=== PATIENT | male | born 1980 | race Caucasian/White ===

== ENCOUNTER 2017-02-05 22:23 | Emergency (ER) | payer BC ==
[~2017-02-05] VITALS: Ht 182.9 cm; Wt 111.1 kg
[2017-02-05] MEDS ORDERED: ZOLOFT25 MG ORAL (22:44)
[2017-02-05] MEDS ORDERED: METOPROLOL TART25 MG ORAL (22:44)
[2017-02-05] MEDS ORDERED: COZAAR25 MG ORAL (22:44)
[2017-02-05] MEDS ORDERED: DiphenhydrAMINE 50mg/ml Inj IVP ONE (23:00)
[2017-02-05] MEDS ORDERED: Metoclopramide 10mg/2ml Inj IVP ONE (23:00)
[2017-02-05 23:05] LABS: APPEARANCE,URINE CLEAR; KETONES,URINE NEGATIVE (NEGATIVE); LEUKOCYTE ESTERASE ,URINE NEGATIVE (NEGATIVE); NITRITE,URINE NEGATIVE (NEGATIVE); PH,URINE 7 (4.5-8.0); PROTEIN,URINE NEGATIVE (NEGATIVE); UROBILINOGEN,URINE NORMAL MG/DL (0.0-1.0)
[2017-02-05 23:10] VITALS: BP 158/99
[2017-02-05 23:40] LABS: BASOPHILS % (AUTO) 0.7 % (0.0-2.0); EOSINOPHILS % (AUTO) 0.7 % (0.0-3.0); LYMPHOCYTES % (AUTO) 26.5 % (20.0-45.0); MEAN CORPUSCULAR HEMOGLOBIN 28.4 PG (27.0-31.0); MEAN CORPUSCULAR VOLUME 84 FL (80-99); MONOCYTES % (AUTO) 9.5 % (1.0-10.0); NEUTROPHILS % (AUTO) 62.6 % (45.0-75.0); PLATELET COUNT 225 K/UL (150-450); RED CELL DISTRIBUTION WIDTH 11.2 % (11.6-14.8); WHITE BLOOD COUNT 8.9 K/UL (4.8-10.8)
[2017-02-05 23:53] LABS: ALANINE AMINOTRANSFERASE 27 U/L (3-41); ALBUMIN/GLOBULIN RATIO 1.7 (1.0-2.7); ANION GAP 13 (5-15); ASPARTATE AMINO TRANSFERASE 28 U/L (5-40); CALCIUM 9.5 mg/dL (8.6-10.2); CARBON DIOXIDE 26 mEQ/L (20-30); CHLORIDE 102 mEQ/L (98-107); CREATININE 1.1 mg/dL (0.7-1.2); GLOMERULAR FILTRATION RATE > 60 mL/min (>60); HEMOLYSIS 10; POTASSIUM 3.4 mEQ/L (3.4-4.9); SODIUM 141 mEQ/L (135-145); TOTAL PROTEIN 7.4 g/dL (6.6-8.7)
[2017-02-06] MEDS ORDERED: DiphenhydrAMINE 50mg/ml Inj IVP ONE (00:15)
[2017-02-06 00:30] VITALS: BP 127/70
[2017-02-06] MEDS ORDERED: FIORICET1 EA ORAL (01:53)
[2017-02-06 02:00] VITALS: BP 132/69
[2017-02-06 02:06] VITALS: BP 132/69
--- NOTE | 2017-02-06 02:37 | Emergency Room Report ---
History of Present Illness General Chief Complaint: Headache Source: Patient Present Illness HPI Patient 36-year-old male presented after increased headache. Patient reported having headache acute onset approximately 1 day prior to arrival. Patient reported having difficulty with have bilateral eye pain. He reported having some increased stiffness to his low back. He had not been vomiting. He reports having had previously having played sports and had increased pain over the past 2 days. Patient had been taking Naprosyn without relief. Allergies: Coded Allergies: AMOXICILLIN (Verified Allergy, Unknown, 02/05/17) Patient History Reviewed Nursing Documentation: PMH: Agreed, PSxH: Agreed Nursing Documentation-PMH Past Medical History: No History, Except For Hx Hypertension: Yes Review of Systems All Other Systems: negative except mentioned in HPI Physical Exam Vital Signs Date Time Temp Pulse Resp B/P (MAP) Pulse Ox O2 Delivery O2 Flow Rate FiO2 02/05/17 22:35 98.8 87 16 158/99 95 Room Air Sp02 EP Interpretation: reviewed, normal General Appearance: normal inspection, well appearing, no apparent distress, alert, GCS 15 Head: atraumatic ENT: normal ENT inspection, hearing grossly normal, normal voice Neck: normal inspection, full range of motion, supple, no bony tend Respiratory: normal inspection, lungs clear, normal breath sounds, no respiratory distress, no retraction, no wheezing Cardiovascular #1: regular rate, rhythm, no edema Gastrointestinal: normal inspection, normal bowel sounds, non tender, soft, no guarding, no hernia Genitourinary: no CVA tenderness Musculoskeletal: normal inspection, back normal, normal range of motion Neurologic: normal inspection, alert, oriented x3, responsive, inset cutter III-XII nml as tested, speech normal Psychiatric: normal inspection, judgement/insight normal, mood/affect normal Skin: normal inspection, normal color, no rash Medical Decision Making Diagnostic Impression: Primary Impression: Headache ER Course Patient 36-year-old male who presented after increased headache. Differential diagnoses included but was not limited to skull fracture, subarachnoid hemorrhage, meningitis, aneurysm, mass lesion, intracranial hemorrhage. Because of complexity of patient's case laboratory testing and imaging studies were ordered. Patient was noted to have concerning type headache. He did not show any evidence of a bacterial meningitis. MRI was ordered due to patient's acute onset of headache. MRI read by radiology showed no acute abnormalities. The patient was given medications for his headache with some improvement. The patient was offered spinal tap however he declined. The patient is advised to return if he began having worsening headache numbness or weakness in his extremities persistent vomiting or other concerns Labs Test 02/05/17 22:28 02/05/17 23:10 Urine Color Pale yellow Urine Appearance Clear Urine pH 7 (4.5-8.0) Urine Specific [place] 1.010 (1.005-1.035) Urine Protein Negative (NEGATIVE) Urine Glucose (UA) Negative (NEGATIVE) Urine Ketones Negative (NEGATIVE) Urine Occult Blood Negative (NEGATIVE) Urine Nitrite Negative (NEGATIVE) Urine Bilirubin Negative (NEGATIVE) Urine Urobilinogen Normal MG/DL (0.0-1.0) Urine Leukocyte Esterase Negative (NEGATIVE) White Blood Count 8.9 K/UL (4.8-10.8) Red Blood Count 5.60 M/UL (4.70-6.10) Hemoglobin 15.9 G/DL (14.2-18.0) Hematocrit 46.9 % (42.0-52.0) Mean Corpuscular Volume 84 FL (80-99) Mean Corpuscular Hemoglobin 28.4 PG (27.0-31.0) Mean Corpuscular Hemoglobin Concent 34.0 G/DL (32.0-36.0) Red Cell Distribution Width 11.2 % (11.6-14.8) Platelet Count 225 K/UL (150-450) Mean Platelet Volume 8.0 FL (6.5-10.1) Neutrophils (%) (Auto) 62.6 % (45.0-75.0) Lymphocytes (%) (Auto) 26.5 % (20.0-45.0) Monocytes (%) (Auto) 9.5 % (1.0-10.0) Eosinophils (%) (Auto) 0.7 % (0.0-3.0) Basophils (%) (Auto) 0.7 % (0.0-2.0) Sodium Level 141 mEQ/L (135-145) Potassium Level 3.4 mEQ/L (3.4-4.9) Chloride Level 102 mEQ/L (98-107) Carbon Dioxide Level 26 mEQ/L (20-30) Anion Gap 13 (5-15) Blood Urea Nitrogen 7 mg/dL (7-23) Creatinine 1.1 mg/dL (0.7-1.2) Estimat Glomerular Filtration Rate > 60 mL/min (>60) Glucose Level 118 mg/dL (74-106) Calcium Level 9.5 mg/dL (8.6-10.2) Total Bilirubin 0.9 mg/dL (0.0-1.2) Aspartate Amino Transf (AST/SGOT) 28 U/L (5-40) Alanine Aminotransferase (ALT/SGPT) 27 U/L (3-41) Alkaline Phosphatase 53 U/L (40-129) Total Protein 7.4 g/dL (6.6-8.7) Albumin 4.7 g/dL (3.5-5.2) Globulin 2.7 g/dL Albumin/Globulin Ratio 1.7 (1.0-2.7) Last Vital Signs Date Time Temp Pulse Resp B/P (MAP) Pulse Ox O2 Delivery O2 Flow Rate FiO2 02/06/17 02:06 98.0 21 132/69 100 Room Air 02/05/17 22:35 87 Status: improved Disposition: HOME, SELF-CARE Condition: Stable Scripts Acetamin/Butalbital/Caffeine* (FIORICET*) 1 Ea Tab 1 TAB ORAL Q6H, #15 TAB 0 Refills Prov: Jj Parker 02/06/17 Patient Instructions: General Headache Without Cause Jj Parker Feb 06, 2017 02:37
--- NOTE | 2017-02-06 11:25 | Diagnostic Imaging Report ---
Indication: New-onset headache. Technique: The head was imaged in a 1.5 Sabrina magnet. Sequences obtained include sagittal and axial T1 FLAIR, axial T2 fast spin echo with fat saturation, axial T2 FLAIR, diffusion and ADC map. Comparison: None Findings: The size, contour, and configuration of the sulci, ventricles, and basal cisterns appear normal. Rodriguez-white differentiation is normal. There is no restricted diffusion. There is no mass effect, midline shift, edema, or hemorrhage. There are no abnormal extra-axial or intra-axial fluid collections. The corpus callosum is unremarkable. The brainstem and cerebellum are unremarkable. The sella is unremarkable. Bone marrow signal within the visualized osseous structures appears age appropriate and unremarkable otherwise. Subtotal thickening noted in ethmoid sinus Impression: Negative MRI brain without contrast. Ethmoid sinusitis [facility] has communicated the preliminary results to the Emergency Department. Their findings are largely concordant with this report.
== END 2017-02-06 02:00 | disposition home or self-care (01) ==
LOC: EMR 22:55
DX: R51 Headache (principal); J32.2 Chronic ethmoidal sinusitis; Z88.8 Allergy status to other drugs, medicaments and biological substances; I10 Essential (primary) hypertension
CPT/HCPCS: 36415; 70551; 80053; 81003; 85025; 96361; 96374; 96375; 99284; J1200; J2765; J7040

== ENCOUNTER 2019-02-08 16:43 | Emergency (ER) | payer BC ==
[~2019-02-08] VITALS: Ht 182.9 cm; Wt 97.5 kg
[~2019-02-08 16:43] MED LIST: COZAAR25 MG ORAL; FIORICET1 EA ORAL; METOPROLOL TART25 MG ORAL; ZOLOFT25 MG ORAL
[2019-02-08 17:12] VITALS: BP 148/91
[2019-02-08] MEDS ORDERED: DiphenhydrAMINE 50mg/ml Inj IVP ONE (17:15)
[2019-02-08] MEDS ORDERED: Metoclopramide 10mg/2ml Inj IVP ONE (17:15)
[2019-02-08] MEDS ORDERED: Ketorolac 30mg Inj IV ONE (17:15)
--- NOTE | 2019-02-08 17:18 | NUR ---
ED Nurse Note: pt c/o headache and dizziness. ERMD eval done pt unable tto give urine at this time ermd aware.
--- NOTE | 2019-02-08 17:58 | NUR ---
ED Nurse Note: blood and urine sent pt medicated ivf up infusing. will monitor.
[2019-02-08 18:00] LABS: APPEARANCE,URINE CLEAR; BILIRUBIN, URINE NEGATIVE (NEGATIVE); GLUCOSE, URINE (UA) NEGATIVE (NEGATIVE); KETONES,URINE NEGATIVE (NEGATIVE); LEUKOCYTE ESTERASE ,URINE NEGATIVE (NEGATIVE); NITRITE,URINE NEGATIVE (NEGATIVE); PH,URINE 8 (4.5-8.0); PROTEIN,URINE NEGATIVE (NEGATIVE); UROBILINOGEN,URINE NORMAL MG/DL (0.0-1.0)
[2019-02-08 18:07] LABS: BASOPHILS % (AUTO) 0.9 % (0.0-2.0); EOSINOPHILS % (AUTO) 1.2 % (0.0-3.0); HEMATOCRIT 49.6 % (42.0-52.0); HEMOGLOBIN 16.4 G/DL (14.2-18.0); LYMPHOCYTES % (AUTO) 23.5 % (20.0-45.0); MEAN CORPUSCULAR VOLUME 82 FL (80-99); NEUTROPHILS % (AUTO) 67.4 % (45.0-75.0); PLATELET COUNT 226 K/UL (150-450); RED BLOOD COUNT 6.01 M/UL (4.70-6.10); RED CELL DISTRIBUTION WIDTH 11.4 % (11.6-14.8); WHITE BLOOD COUNT 7.7 K/UL (4.8-10.8)
[2019-02-08 18:09] LABS: COLOR,URINE YELLOW
[2019-02-08 18:11] LABS: ANION GAP 8 mmol/L (5-15); BLOOD UREA NITROGEN 12 mg/dL (7-18); CALCIUM 9.6 MG/DL (8.5-10.1); CARBON DIOXIDE 27 MMOL/L (21-32); CHLORIDE 105 MMOL/L (98-107); CREATININE 1.1 MG/DL (0.55-1.30); POTASSIUM 3.9 MMOL/L (3.5-5.1); SODIUM 140 MMOL/L (136-145)
[2019-02-08 18:21] LABS: ALANINE AMINOTRANSFERASE 33 U/L (12-78); ALBUMIN 4.7 G/DL (3.4-5.0); ALBUMIN/GLOBULIN RATIO 1.3 (1.0-2.7); ALKALINE PHOSPHATASE 48 U/L (46-116); ASPARTATE AMINO TRANSFERASE 27 U/L (15-37); BILIRUBIN,TOTAL 1.1 MG/DL (0.2-1.0)
[2019-02-08 18:23] LABS: BILIRUBIN,DIRECT 0.2 MG/DL (0.0-0.3)
--- NOTE | 2019-02-08 18:24 | NUR ---
ED Nurse Note: verbal order to d/c allylan. order changed to mary
--- NOTE | 2019-02-08 18:44 | Emergency Room Report ---
History of Present Illness General Chief Complaint: Headache Source: Patient Present Illness HPI 38-year-old male with history of migraine headaches here complaining acute onset of 10 out of 10 headache that started 2 days ago after he got out. Patient reports that he is now radiating to his neck giving him nausea. Patient was seen patient reports that the medication was given the emergency room and upon discharge to help. Patient has taken many other than Tylenol today. Went to her primary care earlier and was given Imitrex took 2 Imitrex and did not have any improvement. Patient denies syncope, loss of consciousness , dizziness, blurred vision, aura Denies abdominal pain, cough and congestion recent URI symptoms. Denies vertigo, motor and sensory deficits. Denies chest pain, palpitation, and other associated symptoms. Denies tobacco smoke, alcohol intake, drug use. Patient reports that he works out a lot does not take any steroid injections and always hydrates. Denies head injury. Patient refuses head CT scan. Denies neck stiffness, fever and chills, photophobia Allergies: Coded Allergies: AMOXICILLIN (Verified Allergy, Unknown, 02/05/17) Patient History Past Medical History: see triage record Past Surgical History: unable to obtain Pertinent Family History: none Immunizations: UTD Reviewed Nursing Documentation: PMH: Agreed; PSxH: Agreed Nursing Documentation-PMH Past Medical History: No History, Except For Hx Hypertension: Yes Review of Systems All Other Systems: negative except mentioned in HPI Physical Exam Vital Signs Date Time Temp Pulse Resp B/P (MAP) Pulse Ox O2 Delivery O2 Flow Rate FiO2 02/08/19 16:57 99.1 88 15 148/91 (110) 98 Room Air Sp02 EP Interpretation: reviewed, normal General Appearance: no apparent distress, alert, GCS 15, non-toxic Head: normocephalic, atraumatic Eyes: bilateral eye normal inspection, bilateral eye PERRL ENT: hearing grossly normal, normal pharynx, no angioedema, normal voice Neck: full range of motion, supple, no meningismus, supple/symm/no masses Respiratory: chest non-tender, lungs clear, normal breath sounds, no rhonchi, no wheezing, speaking full sentences Cardiovascular #1: regular rate, rhythm, no edema, no murmur Gastrointestinal: normal bowel sounds, non tender, soft, non-distended, no guarding, no rebound Rectal: deferred Musculoskeletal: back normal, gait/station normal, normal range of motion, non- tender Neurologic: alert, oriented x3, responsive, motor strength/tone normal, sensory intact, speech normal Psychiatric: judgement/insight normal, memory normal, mood/affect normal, no suicidal/homicidal ideation Skin: no rash Lymphatic: no adenopathy Medical Decision Making PA Attestation All my diagnosis and treatment plans were reviewed ad discussed with my supervising physician Dr. Parker Diagnostic Impression: Primary Impression: Migraine headache ER Course 38-year-old male with history of migraine headaches here complaining acute onset of 10 out of 10 headache that started 2 days ago after he got out. Patient reports that he is now radiating to his neck giving him nausea. Patient was seen patient reports that the medication was given the emergency room and upon discharge to help. Patient has taken many other than Tylenol today. Went to her primary care earlier and was given Imitrex took 2 Imitrex and did not have any improvement. Patient denies syncope, loss of consciousness , dizziness, blurred vision, aura Denies abdominal pain, cough and congestion recent URI symptoms. Denies vertigo, motor and sensory deficits. Denies chest pain, palpitation, and other associated symptoms. Denies tobacco smoke, alcohol intake, drug use. Patient reports that he works out a lot does not take any steroid injections and always hydrates. Denies head injury. Patient refuses head CT scan. Denies neck stiffness, fever and chills, photophobia Ddx considered but are not limited to: cerebral hematoma, concussion, migraine headache, tension headache, intracranial tumor Vital signs: are WNL, pt. is afebrile H&PE are most consistent with:migraine SAVAGE ORDERS: Head CT scan, CBC, CMP, UA, urine tox screen, Fioricet, Zofran ER intervention: Zofran, Toradol, NS bolus, Benadryl DISCHARGE: At this time pt. is stable for d/c to home. Will provide printed patient care instructions, and any necessary prescriptions. Care plan and follow up instructions have been discussed with the patient prior to discharge. Patient agreed with neurologist who presents to the emergency room since patient has had similar pain 2 years ago may be connected to his migraine headache and since patient refusing a CT scan unknown status of head bleed or tumor. I advised the patient to follow-up with primary care and definitely with a CT scan or new MRI. Patient do not want to take Reglan and said that it gives him anxiety. Patient also takes Xanax occasionally at night advised him to not take at the same time as Fioricet. ORDERS: head CT no contrast ED INTERVENTIONS: None required at this time. DISCHARGE: At this time pt. is stable for d/c to home. Will provide printed patient care instructions, and any necessary prescriptions. Care plan and follow up instructions have been discussed with the patient prior to discharge. Last Vital Signs Date Time Temp Pulse Resp B/P (MAP) Pulse Ox O2 Delivery O2 Flow Rate FiO2 02/08/19 17:12 99.1 15 148/91 98 Room Air 02/08/19 16:57 88 Disposition: HOME, SELF-CARE Condition: Stable Scripts Ondansetron (Zofran) 4 Mg Tablet 4 MG ORAL Q6H PRN for Nausea & Vomiting, #12 TAB Prov: Aileen Polanco 02/08/19 Acetamin/Butalbital/Caffeine* (FIORICET*) 1 Ea Tab 1 TAB ORAL Q6H for 4 Days, #15 TAB 0 Refills Prov: Aileen Polanco 02/08/19 Referrals: NON PHYSICIAN (PCP) Patient Instructions: Migraine Headache Additional Instructions: Take medication as directed follow-up with your primary care provider for referral to neurologist if worsening symptoms return to the emergency room Aileen Polanco Feb 08, 2019 18:44
[2019-02-08] MEDS ORDERED: FIORICET1 EA ORAL (18:45)
[2019-02-08] MEDS ORDERED: ZOFRAN4 M1 ORAL (18:45)
[2019-02-08 19:21] VITALS: BP 135/90
--- NOTE | 2019-02-08 19:23 | NUR ---
ER DISCHARGE NOTE: Patient is cleared to be discharged per ERMD, pt is aox4, on room air, with stable vital signs. pt was given dc and prescription instructions, pt was able to verbalize understanding, pt id band and iv site removed without complications. pt is able to ambulate with steady gait. pt took all belongings.
== END 2019-02-08 19:23 | disposition home or self-care (01) ==
LOC: EMR 17:30
DX: G43.909 Migraine, unspecified, not intractable, without status migrainosus (principal); I10 Essential (primary) hypertension; Z88.0 Allergy status to penicillin
CPT/HCPCS: 36415; 80053; 80307; 81001; 82248; 85025; 96361; 96374; 96375; 99284; J1200; J1885; J2405; J2765